=== PATIENT | female | born 1945 | race American Indian/Alaskan Native ===

== ENCOUNTER 2022-02-28 09:29 | Inpatient (IN) | payer MEDICARE ==
[2022-02-28] MEDS ORDERED: LORazepam 2 MG/ML VIAL ONE (09:31)
[2022-02-28] MEDS ORDERED: levETIRAcetam 1000 MG/NS 0.75% 1,000 MG/100 ML BAG IV ONE (09:41)
--- NOTE | 2022-02-28 09:46 | Emergency Department Report ---
ED Seizure HPI - General Stated Complaint: UNRESPONSIVE Time Seen by Provider: 02/28/22 09:37 - History of Present Illness Initial Comments: 76-year-old female with a history of seizure brought in by family member with generalized body shakiness and left facial twitching that started this morning. According to the patient daughter who came with her this is the first time she is witnessing this grand mal seizure. Patient has right carotid enterectomy done about a month ago and had a CVA before the procedure was done. According to the daughter patient has 100% on right side and 90% on the left side. She was started on Keppra for seizure since then. Pt daughter mentioned that her condition has deteriorated since she was started on the new medicine Keppra. No fall or trauma to the brain reported. No other modifying or associated factors reported. MD Complaint: seizure - Related Data Home Medications Medication Instructions Recorded Confirmed Last Taken carvediloL [Coreg] 12.5 mg PO BID 02/28/22 02/28/22 02/28/22 06:30 dilTIAZem CD [Cardizem Cd] 240 mg PO QDAY 02/28/22 02/28/22 02/28/22 Previous Rx's Medication Instructions Recorded Last Taken Type AtorvaSTATin [Lipitor] 80 mg PO QHS #60 tablet 12/29/21 02/28/22 Rx 0600 Levothyroxine [Synthroid] 100 mcg PO QAM #30 tablet 12/29/21 02/28/22 Rx 0600 Losartan [Cozaar] 100 mg PO QDAY #30 12/29/21 02/28/22 Rx 0600 levETIRAcetam [Keppra TAB] 250 mg PO BID #60 tablet 12/29/21 02/28/22 06:00 Rx Clopidogrel [Plavix] 75 mg PO QDAY #90 tablet 01/05/22 Unknown Rx Docusate Sodium [Colace CAP] 100 mg PO BID #30 capsule 01/07/22 Unknown Rx hydrALAZINE [Apresoline TAB] 50 mg PO Q8HR #90 tablet 01/07/22 02/28/22 06:00 Rx Allergies Allergy/AdvReac Type Severity Reaction Status Date / Time No Known Allergies Allergy Unverified 12/27/21 12:05 ED Review of Systems ROS: Stated complaint: UNRESPONSIVE Other details as noted in HPI Comment: All other systems reviewed and negative Neurological: other (Seizure) ED Past Medical Hx - Past Medical History Hx Hypertension: Yes Hx Heart Attack/AMI: No (+Cardiac clearance; negative NST) Hx Sickle Cell Disease: No - Social History Smoking Status: Former Smoker - Medications Home Medications: Home Medications Medication Instructions Recorded Confirmed Last Taken Type AtorvaSTATin [Lipitor] 80 mg PO QHS #60 tablet 12/29/21 02/28/22 02/28/22 Rx 0600 Levothyroxine [Synthroid] 100 mcg PO QAM #30 tablet 12/29/21 02/28/22 02/28/22 Rx 0600 Losartan [Cozaar] 100 mg PO QDAY #30 12/29/21 02/28/22 02/28/22 Rx 0600 levETIRAcetam [Keppra TAB] 250 mg PO BID #60 tablet 12/29/21 02/28/22 02/28/22 06:00 Rx Clopidogrel [Plavix] 75 mg PO QDAY #90 tablet 01/05/22 Unknown Rx Docusate Sodium [Colace CAP] 100 mg PO BID #30 capsule 01/07/22 Unknown Rx hydrALAZINE [Apresoline TAB] 50 mg PO Q8HR #90 tablet 01/07/22 02/28/22 02/28/22 06:00 Rx carvediloL [Coreg] 12.5 mg PO BID 02/28/22 02/28/22 02/28/22 06:30 History dilTIAZem CD [Cardizem Cd] 240 mg PO QDAY 02/28/22 02/28/22 02/28/22 History ED Physical Exam - General Limitations: Altered Mental Status, Other (Active seizing) General appearance: postictal (Then with seizure in the emergency room) - ENT ENT exam: Present: normal exam, normal orophraynx, mucous membranes dry - Neck Neck exam: Present: other (Right surgical scar probably from the CEA) - Respiratory Respiratory exam: Present: normal lung sounds bilaterally. Absent: respiratory distress, accessory muscle use - Cardiovascular Cardiovascular Exam: Present: regular rate, normal rhythm, normal heart sounds - GI/Abdominal GI/Abdominal exam: Present: soft, normal bowel sounds. Absent: tenderness - Extremities Exam Extremities exam: Present: normal inspection. Absent: tenderness, pedal edema - Neurological Exam Neurological exam: Present: other (active seizure ) ED Course Vital Signs 02/28/22 02/28/22 02/28/22 09:30 09:45 10:00 Temperature 97.8 F Pulse Rate 88 Respiratory 18 Rate Blood Pressure 210/130 O2 Sat by Pulse 99 Oximetry 02/28/22 02/28/22 02/28/22 10:09 10:16 10:30 Temperature Pulse Rate 70 67 62 Respiratory 18 22 16 Rate Blood Pressure 171/93 197/89 O2 Sat by Pulse 97 100 100 Oximetry 02/28/22 02/28/22 02/28/22 10:46 11:00 11:12 Temperature Pulse Rate 67 62 100 H Respiratory 20 21 Rate Blood Pressure 197/89 253/162 200/100 O2 Sat by Pulse 96 97 97 Oximetry 02/28/22 02/28/22 02/28/22 11:16 11:30 11:46 Temperature Pulse Rate 63 66 60 Respiratory 29 H 31 H 23 Rate Blood Pressure 219/104 216/96 200/112 O2 Sat by Pulse 97 98 100 Oximetry 02/28/22 02/28/22 02/28/22 12:00 12:16 12:30 Temperature Pulse Rate 66 69 63 Respiratory 26 H 25 H 25 H Rate Blood Pressure 206/110 206/102 208/98 O2 Sat by Pulse 100 100 100 Oximetry 02/28/22 02/28/22 02/28/22 12:46 13:00 13:16 Temperature Pulse Rate 67 68 65 Respiratory 29 H 29 H 31 H Rate Blood Pressure 198/100 200/94 205/108 O2 Sat by Pulse 100 100 97 Oximetry 02/28/22 02/28/22 13:30 13:46 Temperature Pulse Rate 68 69 Respiratory 31 H 33 H Rate Blood Pressure 190/90 130/73 O2 Sat by Pulse 100 95 Oximetry ED Medical Decision Making - Lab Data Result diagrams: 02/28/22 Unknown 02/28/22 Unknown - EKG Data EKG shows normal: sinus rhythm Rate: normal - EKG Data 02/28/22 12:05 Noted with normal sinus rhythm at a rate of 73 bpm with multiple premature complexes with no ST elevation or depression in this abnormal ECG. - Radiology Data CT head noted with no intracranial abnormality or bleed - Medical Decision Making Here with possible seizure -- but considering this patients age and recent right carotid endarterectomy other differential such as stroke, myocardial infarction, hepatic encephalopathy, systemic infection with sepsis cannot be ruled out. In order to rule out those above we will go ahead and order CT scan of the brain, CBC, CMP, urinalysis, for any infectious process or electrolyte abnormality and thyroid panel for any hypo or hyper thyroidism. In the meantime we will go ahead and give immediate Ativan 2 mg IV x1 and Keppra 1 g IV piggyback x1. Also noted with hypertensive crisis-- Labetalol 20 mg given -- Critical care attestation.: If time is entered above; I have spent that time in minutes in the direct care of this critically ill patient, excluding procedure time. ED Disposition Clinical Impression: Seizure, Postictal confusion, Hypertensive crisis AMS (altered mental status) Qualifiers: Altered mental status type: unspecified Qualified Code(s): R41.82 - Altered mental status, unspecified Disposition: 09 ADMITTED INPATIENT Is pt being admited?: Yes Does the pt Need Aspirin: No Condition: Stable Instructions: Hypertension (ED) Time of Disposition: 14:52
--- NOTE | 2022-02-28 10:17 | Cat Scan Report ---
NONENHANCED CT SCAN OF THE HEAD: INDICATION / CLINICAL INFORMATION: 76 years Female; CODE STROKE, LNW [id number], Found unresponsive, [id number] . TECHNIQUE: Routine CT head without contrast. All CT scans at this location are performed using CT dos e reduction for ALARA by means of automated exposure control. COMPARISON: CT scan of the head from 01/06/2022 and MRI scan from 12/28/2021 FINDINGS: BRAIN / INTRACRANIAL CONTENTS: No intracerebral hemorrhage or stroke mimics No change in the left occipital craniotomy and residual calcified extra-axial mass; chronic changes i n the lateral convexity of the posterior right frontal lobe; unchanged; periventricular low-attenuati on areas due to chronic small vessel disease; unchanged CRANIOCERVICAL JUNCTION: No significant abnormality. ORBITS: No significant abnormality of visualized orbits. SINUSES / MASTOIDS: No significant abnormality of the visualized paranasal sinuses or mastoid air raisa ls. ADDITIONAL FINDINGS: None. IMPRESSION: No intracerebral hemorrhage or stroke mimics No acute/subacute territorial infarction Chronic ischemic changes in the lateral convexity of right posterior frontal lobe; unchanged Signer Name: Ben Bryant MD Signed: 02/28/2022 10:12 AM Workstation Name: [id number]
[2022-02-28 10:42] LABS: Basophils % (Auto) 0.4 % (0.0-1.8); Eosinophils % (Auto) 0.7 % (0.0-4.3); Hematocrit 36.2 % (30.3-42.9); Hemoglobin 11.7 gm/dl (10.1-14.3); Lymphocytes # (Auto) 2.4 K/mm3 (1.2-5.4); Lymphocytes % (Auto) 36.1 % (13.4-35.0); Mean Corpuscular HGB Conc 32 % (30-34); Mean Corpuscular Volume 88 fl (79-97); Monocytes # (Auto) 0.3 K/mm3 (0.0-0.8); Monocytes % (Auto) 4.2 % (0.0-7.3); Red Cell Distribution Width 15.9 % (13.2-15.2)
[2022-02-28 10:49] LABS: INR 0.92 (0.87-1.13)
[2022-02-28 11:01] LABS: Alanine Aminotransferase 11 units/L (7-56); Albumin 3.9 g/dL (3.9-5); BUN/Creatinine Ratio 14; Blood Urea Nitrogen 11 mg/dL (7-17); Calcium 9.3 mg/dL (8.4-10.2); Hemolysis Index 29
[2022-02-28 11:53] LABS: Platelet Count 158 K/mm3 (140-440)
[2022-02-28] MEDS ORDERED: hydrALAZINE 20 MG/1 ML INJ IV ONE (13:00)
[2022-02-28] MEDS ORDERED: hydrALAZINE 20 MG/1 ML INJ ONE (13:19)
[2022-02-28] MEDS ORDERED: ACETAMINOPHEN 325 MG TAB PO PRN ×2 (14:52→18:29)
[2022-02-28] MEDS ORDERED: ONDANSETRON 4 MG/2 ML INJ IV PRN ×2 (14:52→18:29)
[2022-02-28] MEDS ORDERED: MORPHINE 2 MG/1 ML INJ IV PRN (14:52)
--- NOTE | 2022-02-28 18:27 | History and Physical Report ---
History of Present Illness Date of examination: 02/28/22 Date of admission: 02/28/22 14:52 Chief complaint: Recurrent seizures History of present illness: 76-year-old -[place] female with history of hypertension, seizure disorder, coronary artery disease and hypothyroidism and hyperlipidemia brought in by daughter for generalized seizures since a.m. Also left facial twitching. Patient recently had bilateral carotid endarterectomy. Had a cerebrovascular accident for the endarterectomy procedure. Patient had blockage of 100% on the right side and 90% on the left side. Patient is on Keppra for a long time. Compliant with medications. No fever or chills. - Past Medical History --Hypertension: Yes --Heart Attack/AMI: No (+Cardiac clearance; negative NST) --Hypothyroidism Surgical history -- bilateral carotid endarterectomy--recently - Social History --Smoking Status: Former Smoker -Family history --Htn - Medications --Home Medications: Home Medications Medication Instructions Recorded Confirmed Last Taken Type AtorvaSTATin [Lipitor] 80 mg PO QHS #60 tablet 12/29/21 02/28/22 02/28/22 Rx 0600 Levothyroxine [Synthroid] 100 mcg PO QAM #30 tablet 12/29/21 02/28/22 02/28/22 Rx 0600 Losartan [Cozaar] 100 mg PO QDAY #30 12/29/21 02/28/22 02/28/22 Rx 0600 levETIRAcetam [Keppra TAB] 250 mg PO BID #60 tablet 12/29/21 02/28/22 02/28/22 06:00 Rx Clopidogrel [Plavix] 75 mg PO QDAY #90 tablet 01/05/22 Unknown Rx Docusate Sodium [Colace CAP] 100 mg PO BID #30 capsule 01/07/22 Unknown Rx hydrALAZINE [Apresoline TAB] 50 mg PO Q8HR #90 tablet 01/07/22 02/28/22 02/28/22 06:00 Rx carvediloL [Coreg] 12.5 mg PO BID 02/28/22 02/28/22 02/28/22 06:30 History dilTIAZem CD [Cardizem Cd] 240 mg PO QDAY 02/28/22 02/28/22 02/28/22 History Review of Systems ROS: Constitutional no weight loss or weight gain no fever or chills HEENT no sore throat no post nasal drip no diplopia Neck no neck stiffness no lymph gland enlargement Chest and lungs no shortness of breath cough or wheezing CVS no chest pain no diaphoresis no palpitations GI no nausea no vomiting no diarrhea Genitourinary system no dysuria no flank pain Musculoskeletal system no muscle pains no joint pains [employer] recurrent seizures and postictal Skin no rash no itching Psychiatric no depression no homicidal or suicidal tendencies Hematologic no lymphedema or bruising Endocrine no polydipsia no polyuria no cold intolerance no heat intolerance Medications and Allergies Allergies Allergy/AdvReac Type Severity Reaction Status Date / Time No Known Allergies Allergy Unverified 12/27/21 12:05 Home Medications Medication Instructions Recorded Confirmed Last Taken Type AtorvaSTATin [Lipitor] 80 mg PO QHS #60 tablet 12/29/21 02/28/22 02/28/22 Rx 0600 Levothyroxine [Synthroid] 100 mcg PO QAM #30 tablet 12/29/21 02/28/22 02/28/22 Rx 0600 Losartan [Cozaar] 100 mg PO QDAY #30 12/29/21 02/28/22 02/28/22 Rx 0600 levETIRAcetam [Keppra TAB] 250 mg PO BID #60 tablet 12/29/21 02/28/22 02/28/22 06:00 Rx Clopidogrel [Plavix] 75 mg PO QDAY #90 tablet 01/05/22 Unknown Rx Docusate Sodium [Colace CAP] 100 mg PO BID #30 capsule 01/07/22 Unknown Rx hydrALAZINE [Apresoline TAB] 50 mg PO Q8HR #90 tablet 01/07/22 02/28/22 02/28/22 06:00 Rx carvediloL [Coreg] 12.5 mg PO BID 02/28/22 02/28/22 02/28/22 06:30 History dilTIAZem CD [Cardizem Cd] 240 mg PO QDAY 02/28/22 02/28/22 02/28/22 History Active Meds: Active Medications Acetaminophen (Acetaminophen 325 Mg Tab) 650 mg PO Q4H PRN PRN Reason: Pain MILD(1-3)/Fever >100.5/COE Morphine Sulfate (Morphine 2 Mg/1 Ml Inj) 2 mg IV Q4H PRN PRN Reason: Pain, Moderate (4-6) Ondansetron HCl (Ondansetron 4 Mg/2 Ml Inj) 4 mg IV Q8H PRN PRN Reason: Nausea And Vomiting Sodium Chloride (Sodium Chloride 0.9% 10 Ml Flush Syringe) 10 ml IV BID VONNIE Last Admin: 02/28/22 17:03 Dose: 10 ml Sodium Chloride (Sodium Chloride 0.9% 10 Ml Flush Syringe) 10 ml IV PRN PRN PRN Reason: LINE FLUSH Exam - Constitutional Vitals: Temp Pulse Resp BP Pulse Ox 97.8 F 66 26 H 96/60 100 02/28/22 09:30 02/28/22 17:30 02/28/22 17:30 02/28/22 17:30 02/28/22 17:30 General appearance: Present: mild distress, well-nourished - EENT Eyes: Present: PERRL ENT: hearing intact, clear oral mucosa - Neck Neck: Present: supple, normal ROM - Respiratory Respiratory effort: normal Respiratory: bilateral: CTA, rhonchi - Cardiovascular Heart rate: 98 Rhythm: regular Heart Sounds: Present: S1 & S2. Absent: rub, click - Extremities Extremities: pulses symmetrical, No edema Peripheral Pulses: within normal limits - Abdominal General gastrointestinal: Present: soft, non-tender, non-distended, normal bowel sounds Female genitourinary: Present: normal - Integumentary Integumentary: Present: clear, warm, dry - Musculoskeletal Musculoskeletal: generalized weakness - Psychiatric Psychiatric: agitated, other (Altered sensorium) - Neurologic Neurologic: CNII-XII intact, moves all extremities - Allied Health Allied health notes reviewed: nursing, case management HEART Score - HEART Score Troponin: Troponin T < 0.010 ng/mL (0.00-0.029) 02/28/22 Unknown Results - Labs CBC & Chem 7: 03/01/22 04:13 03/01/22 04:13 Labs: Laboratory Last Values WBC 6.6 K/mm3 (4.5-11.0) 02/28/22 Unknown RBC 4.10 M/mm3 (3.65-5.03) 02/28/22 Unknown Hgb 11.7 gm/dl (10.1-14.3) 02/28/22 Unknown Hct 36.2 % (30.3-42.9) 02/28/22 Unknown MCV 88 fl (79-97) 02/28/22 Unknown MCH 29 pg (28-32) 02/28/22 Unknown MCHC 32 % (30-34) 02/28/22 Unknown RDW 15.9 % (13.2-15.2) H 02/28/22 Unknown Plt Count 158 K/mm3 (140-440) 02/28/22 Unknown Lymph % (Auto) 36.1 % (13.4-35.0) H 02/28/22 Unknown Winkler % (Auto) 4.2 % (0.0-7.3) 02/28/22 Unknown Eos % (Auto) 0.7 % (0.0-4.3) 02/28/22 Unknown Baso % (Auto) 0.4 % (0.0-1.8) 02/28/22 Unknown Lymph # (Auto) 2.4 K/mm3 (1.2-5.4) 02/28/22 Unknown [place]inkler # (Auto) 0.3 K/mm3 (0.0-0.8) 02/28/22 Unknown Eos # (Auto) 0.0 K/mm3 (0.0-0.4) 02/28/22 Unknown Baso # (Auto) 0.0 K/mm3 (0.0-0.1) 02/28/22 Unknown Seg Neutrophils % 58.6 % (40.0-70.0) 02/28/22 Unknown Seg Neutrophils # 3.9 K/mm3 (1.8-7.7) 02/28/22 Unknown PT 13.6 Sec. (12.2-14.9) 02/28/22 Unknown INR 0.92 (0.87-1.13) 02/28/22 Unknown APTT 24.0 Sec. (24.2-36.6) L 02/28/22 Unknown Sodium 138 mmol/L (137-145) 02/28/22 Unknown Potassium 3.8 mmol/L (3.6-5.0) 02/28/22 Unknown Chloride 100.6 mmol/L (98-107) 02/28/22 Unknown Carbon Dioxide 26 mmol/L (22-30) 02/28/22 Unknown Anion Gap 15 mmol/L 02/28/22 Unknown BUN 11 mg/dL (7-17) 02/28/22 Unknown Creatinine 0.8 mg/dL (0.6-1.2) 02/28/22 Unknown Estimated GFR > 60 ml/min 02/28/22 Unknown BUN/Creatinine Ratio 14 % 02/28/22 Unknown Glucose 142 mg/dL (65-100) H 02/28/22 Unknown Calcium 9.3 mg/dL (8.4-10.2) 02/28/22 Unknown Total Bilirubin 0.40 mg/dL (0.1-1.2) 02/28/22 Unknown AST 19 units/L (5-40) 02/28/22 Unknown ALT 11 units/L (7-56) 02/28/22 Unknown Alkaline Phosphatase 70 units/L (35-129) 02/28/22 Unknown Troponin T < 0.010 ng/mL (0.00-0.029) 02/28/22 Unknown NT-Pro-B Natriuret Pep 581.7 pg/mL (0-900) 02/28/22 Unknown Total Protein 7.8 g/dL (6.3-8.2) 02/28/22 Unknown Albumin 3.9 g/dL (3.9-5) 02/28/22 Unknown Albumin/Globulin Ratio 1.0 % 02/28/22 Unknown Short CBC 02/28/22 03/01/22 Range/Units Unknown 04:13 WBC 6.6 9.7 (4.5-11.0) K/mm3 Hgb 11.7 11.4 (10.1-14.3) gm/dl Hct 36.2 35.7 (30.3-42.9) % Plt Count 158 197 (140-440) K/mm3 BMP 02/28/22 03/01/22 Unknown 04:13 Sodium 138 134 L Potassium 3.8 3.3 L Chloride 100.6 97.0 L Carbon Dioxide 26 24 BUN 11 10 Creatinine 0.8 0.6 Glucose 142 H 116 H Calcium 9.3 9.2 Cardiac Enzymes 02/28/22 Range/Units Unknown Troponin T < 0.010 (0.00-0.029) ng/mL Liver Function 02/28/22 03/01/22 Range/Units Unknown 04:13 Total Bilirubin 0.40 0.40 (0.1-1.2) mg/dL AST 19 22 (5-40) units/L ALT 11 11 (7-56) units/L Alkaline Phosphatase 70 71 (35-129) units/L Albumin 3.9 3.6 L (3.9-5) g/dL Assessment and Plan Assessment and plan: Critical care statement The high probability OF a clinically significant sudden or life-threatening deterioration of the cardiorespiratory system and endocrine system required my full and direct attention, intervention and postoperative management. The aggregate critical care time was 40 minutes. The time is in addition to time spent performing reported procedures but includes the followin: Data review and interpretation 2: Patient assessment and monitoring of vital signs 3: Documentation 4:: Medication orders and management Advance Directives: Yes (Full code) VTE prophylaxis?: Chemical Plan of care discussed with patient/family: Yes - Patient Problems (1) Acute encephalopathy Current Visit: Yes Status: Acute Plan to address problem: Secondary to seizures Patient is postictal IV fluids IV Keppra (2) Status epilepticus Current Visit: Yes Status: Acute Plan to address problem: Recurrent seizures in the last 8 to 12 hours Intubation if necessary for protection of airway IV Keppra initiated (3) Hypertensive emergency Current Visit: Yes Status: Acute Plan to address problem: Patient initiated Coreg, losartan and hydralazine. IV hydralazine 10 mg every 3 hours as needed as required. Cardene drip if necessary. (4) Hypothyroidism Current Visit: Yes Status: Chronic Qualifiers: Hypothyroidism type: acquired Qualified Code(s): E03.9 - Hypothyroidism, unspecified Plan to address problem: Continue Synthroid. Check TSH. (5) COPD (chronic obstructive pulmonary disease) Current Visit: Yes Status: Chronic Qualifiers: COPD type: unspecified COPD Qualified Code(s): J44.9 - Chronic obstructive pulmonary disease, unspecified Plan to address problem: DuoNebs as needed (6) CVA (cerebral vascular accident) Current Visit: Yes Status: Chronic Qualifiers: CVA mechanism: unspecified Qualified Code(s): I63.9 - Cerebral infarction, unspecified Plan to address problem: Left-sided mild residual weakness PT and OT when stable (7) DVT prophylaxis Current Visit: Yes Status: Acute Plan to address problem: On anticoagulation GI prophylaxis (8) Advance care planning Current Visit: Yes Status: Acute Plan to address problem: Patient and daughter were given disease education, care plan discussed, diagnosis discussed, prognosis discussed. Patient is full code. Daughter a cknowledges understanding and agreement with care plan. +30 minutes.
[2022-02-28] MEDS ORDERED: ZOLPIDEM 5 MG TAB PO PRN (18:29)
[2022-02-28] MEDS ORDERED: HYDROmorphone 0.5 MG/0.5 ML INJ IV PRN (18:29)
[2022-02-28] MEDS ORDERED: METOCLOPRAMIDE 10 MG/2 ML INJ IV PRN (18:29)
[2022-02-28] MEDS ORDERED: oxyCODONE /ACETAMINOPHEN 5-325MG TAB PO PRN (18:29)
[2022-02-28] MEDS ORDERED: SODIUM CHLORIDE 0.9% 1000 ML 1,000 ML IV SCH (18:45)
[2022-02-28] MEDS ORDERED: levETIRAcetam 500 MG TAB PO SCH (22:00)
[2022-02-28] MEDS: LORazepam 2 MG/ML VIAL IV PRN (22:07)
[2022-02-28] MEDS: levETIRAcetam 750 MG in DEXTROSE 5% IN WATER 100 ML IV SCH (22:14)
[2022-02-28] MEDS: FAMOTIDINE 20 MG/2 ML INJ IV SCH (22:26)
[2022-02-28] MEDS: carvediloL 12.5 MG TAB PO SCH (23:09)
[2022-02-28] MEDS: hydrALAZINE 25 MG TAB PO SCH (23:10)
[2022-02-28] MEDS: DOCUSATE SODIUM 100 MG CAP PO SCH (23:10)
--- NOTE | 2022-02-28 23:19 | XRay Report ---
ABDOMEN 1 VIEW 02/27/2022 INDICATION / CLINICAL INFORMATION: ng tube placement. COMPARISON: None available. FINDINGS: TUBES / LINES: Weighted enteric tube terminates within the stomach. BOWEL GAS PATTERN: No significant abnormality. FREE AIR / EXTRALUMINAL GAS: None seen. ADDITIONAL FINDINGS: No significant additional findings. IMPRESSION: 1. Weighted enteric tube terminates within the stomach. Signer Name: Sung Arriola DO Signed: 02/28/2022 11:15 PM Workstation Name: [id number]
[2022-03-01] MEDS: LORazepam 2 MG/ML VIAL IV PRN ×2 (00:58→08:00)
[2022-03-01] MEDS: hydrALAZINE 20 MG/1 ML INJ IV PRN ×2 (01:35→16:04)
[2022-03-01 04:59] LABS: Basophils % (Auto) 0.2 % (0.0-1.8); Hematocrit 35.7 % (30.3-42.9); Hemoglobin 11.4 gm/dl (10.1-14.3); Lymphocytes # (Auto) 1.8 K/mm3 (1.2-5.4); Lymphocytes % (Auto) 18.5 % (13.4-35.0); Mean Corpuscular HGB Conc 32 % (30-34); Mean Corpuscular Volume 87 fl (79-97); Monocytes # (Auto) 0.8 K/mm3 (0.0-0.8); Monocytes % (Auto) 7.9 % (0.0-7.3); Platelet Count 197 K/mm3 (140-440); Red Blood Count 4.08 M/mm3 (3.65-5.03); Red Cell Distribution Width 15.7 % (13.2-15.2)
[2022-03-01] MEDS: hydrALAZINE 25 MG TAB PO SCH (05:00)
[2022-03-01 05:24] LABS: Alanine Aminotransferase 11 units/L (7-56); Albumin 3.6 g/dL (3.9-5); Blood Urea Nitrogen 10 mg/dL (7-17); Calcium 9.2 mg/dL (8.4-10.2); Hemolysis Index 10
[2022-03-01 05:36] LABS: BUN/Creatinine Ratio 17
[2022-03-01] MEDS ORDERED: LEVOTHYROXINE 100 MCG TAB PO SCH (06:00)
[2022-03-01] MEDS ORDERED: IPRATROPIUM/ALBUTEROL SULFATE 3 ML AMPUL.NEB IH PRN (07:10)
[2022-03-01] MEDS ORDERED: ALBUTEROL 2.5 MG/3 ML NEBU IH PRN (08:00)
[2022-03-01] MEDS: IPRATROPIUM/ALBUTEROL SULFATE 3 ML AMPUL.NEB IH SCH ×4 (08:33→20:10)
[2022-03-01] MEDS: DOCUSATE SODIUM 100 MG CAP PO SCH (09:03)
[2022-03-01] MEDS: carvediloL 12.5 MG TAB PO SCH (09:07)
[2022-03-01] MEDS: FAMOTIDINE 20 MG/2 ML INJ IV SCH ×2 (09:07→23:33)
[2022-03-01] MEDS: levETIRAcetam 750 MG in DEXTROSE 5% IN WATER 100 ML IV SCH (09:08)
[2022-03-01] MEDS ORDERED: LOSARTAN 50 MG TAB PO SCH (10:00)
[2022-03-01] MEDS ORDERED: NON-FORMULARY EACH (Losartan [Cozaar] 100 MG) PO SCH (10:00)
[2022-03-01] MEDS ORDERED: CLOPIDOGREL 75 MG TAB PO SCH (10:00)
[2022-03-01] MEDS ORDERED: propofoL 200 MG/20 ML VIAL IV ONE (12:02)
--- NOTE | 2022-03-01 12:10 | Electrocardiograph Report ---
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
--- NOTE | 2022-03-01 12:40 | Consultation ---
History of Present Illness Consult date: 03/01/22 Requesting physician: CELIA BLACK Medications and Allergies Allergies Allergy/AdvReac Type Severity Reaction Status Date / Time No Known Allergies Allergy Unverified 12/27/21 12:05 Home Medications Medication Instructions Recorded Confirmed Last Taken Type AtorvaSTATin [Lipitor] 80 mg PO QHS #60 tablet 12/29/21 02/28/22 02/28/22 Rx 0600 Levothyroxine [Synthroid] 100 mcg PO QAM #30 tablet 12/29/21 02/28/22 02/28/22 Rx 0600 Losartan [Cozaar] 100 mg PO QDAY #30 12/29/21 02/28/22 02/28/22 Rx 0600 levETIRAcetam [Keppra TAB] 250 mg PO BID #60 tablet 12/29/21 02/28/22 02/28/22 06:00 Rx Clopidogrel [Plavix] 75 mg PO QDAY #90 tablet 01/05/22 Unknown Rx Docusate Sodium [Colace CAP] 100 mg PO BID #30 capsule 01/07/22 Unknown Rx hydrALAZINE [Apresoline TAB] 50 mg PO Q8HR #90 tablet 01/07/22 02/28/22 02/28/22 06:00 Rx carvediloL [Coreg] 12.5 mg PO BID 02/28/22 02/28/22 02/28/22 06:30 History dilTIAZem CD [Cardizem Cd] 240 mg PO QDAY 02/28/22 02/28/22 02/28/22 History Active Meds: Active Medications Acetaminophen (Acetaminophen 325 Mg Tab) 650 mg PO Q4H PRN PRN Reason: Pain MILD(1-3)/Fever >100.5/COE Albuterol (Albuterol 2.5 Mg/3 Ml Nebu) 2.5 mg IH Q4HRT PRN PRN Reason: Wheezing Albuterol/Ipratropium (Ipratropium/Albuterol Sulfate 3 Ml Ampul.Neb) 1 ampul IH QIDRT VONNIE Last Admin: 03/01/22 08:33 Dose: 1 ampul Atorvastatin Calcium (Atorvastatin 40 Mg Tab) 80 mg FEEDTUBE QHS VONNIE Carvedilol (Carvedilol 12.5 Mg Tab) 12.5 mg FEEDTUBE BID VONNIE Clopidogrel Bisulfate (Clopidogrel 75 Mg Tab) 75 mg FEEDTUBE QDAY VONNIE Docusate Sodium (Docusate Sodium 100 Mg/10 Ml Oral Liqd) 100 mg PO BID VONNIE Famotidine (Famotidine 20 Mg/2 Ml Inj) 20 mg IV BID VONNIE Last Admin: 03/01/22 09:07 Dose: 20 mg Hydralazine HCl (Hydralazine 20 Mg/1 Ml Inj) 10 mg IV Q6H PRN PRN Reason: SBP>160 Last Admin: 03/01/22 01:35 Dose: 10 mg Hydralazine HCl (Hydralazine 25 Mg Tab) 50 mg FEEDTUBE Q8HR VONNIE Hydromorphone HCl (Hydromorphone 0.5 Mg/0.5 Ml Inj) 0.5 mg IV Q3H PRN PRN Reason: Pain , Severe (7-10) Hydrophilic Ointment (Lip Therapy Vaseline) 1 applic TP Q2HR PRN PRN Reason: Dry Lips Sodium Chloride (Nacl 0.9% 1000 Ml) 1,000 mls @ 42 mls/hr IV DIRECT VONNIE Last Admin: 02/28/22 22:14 Dose: 42 mls/hr Propofol (Diprivan 10 Mg/Ml) 1,000 mg in 100 mls @ 2.178 mls/hr IV TITR VONNIE; Protocol Levetiracetam 1,000 mg/ (Dextrose) 110 mls @ 400 mls/hr IV Q12HR VONNIE Levothyroxine Sodium (Levothyroxine 100 Mcg Tab) 100 mcg FEEDTUBE 0600 [facility] Lorazepam (Lorazepam 2 Mg/Ml Vial) 1 mg IV Q3H PRN PRN Reason: Seizures Last Admin: 03/01/22 08:00 Dose: 1 mg Losartan Potassium (Losartan 50 Mg Tab) 100 mg FEEDTUBE QDAY [facility] Melatonin (Melatonin 5 Mg Tab) 5 mg PO QHS PRN PRN Reason: Sleep Metoclopramide HCl (Metoclopramide 10 Mg/2 Ml Inj) 10 mg IV Q6H PRN PRN Reason: Nausea And Vomiting Morphine Sulfate (Morphine 2 Mg/1 Ml Inj) 2 mg IV Q4H PRN PRN Reason: Pain, Moderate (4-6) Multi-Ingred Cream/Lotion/Oil/Oint (Mineral Oil/Petrolatum, White Ophth Oint 3.5 Gm) 1 applic OU Q4HR PRN PRN Reason: Dry Eye(s) Ondansetron HCl (Ondansetron 4 Mg/2 Ml Inj) 4 mg IV Q8H PRN PRN Reason: Nausea And Vomiting Oxycodone/Acetaminophen (Oxycodone /Acetaminophen 5-325mg Tab) 1 tab FEEDTUBE Q6H PRN PRN Reason: Pain, Moderate (4-6) Senna/Docusate Sodium (Sennosides/Docusate Sodium 8.6/50 Mg Tab) 1 tab FEEDTUBE BID VONNIE Sodium Chloride (Sodium Chloride 0.9% 10 Ml Flush Syringe) 10 ml IV BID VONNIE Last Admin: 03/01/22 09:08 Dose: 10 ml Sodium Chloride (Sodium Chloride 0.9% 10 Ml Flush Syringe) 10 ml IV PRN PRN PRN Reason: LINE FLUSH Physical Examination Vital signs: Vital Signs Temp 97.8 F 02/28/22 09:30 Results - Laboratory Findings CBC and BMP: 03/01/22 04:13 03/01/22 04:13 PT/INR, D-dimer PT 13.6 Sec. (12.2-14.9) 02/28/22 Unknown INR 0.92 (0.87-1.13) 02/28/22 Unknown Abnormal lab findings: Abnormal Labs 02/28/22 02/28/22 02/28/22 18:50 Unknown Unknown RDW 15.9 H Lymph % (Auto) 36.1 H Divide % (Auto) Seg Neutrophils % APTT Sodium Potassium Chloride Glucose 142 H POC Glucose 130 H Albumin 02/28/22 03/01/22 03/01/22 Unknown 04:13 04:13 RDW 15.7 H Lymph % (Auto) Divide % (Auto) 7.9 H Seg Neutrophils % 73.4 H APTT 24.0 L Sodium 134 L Potassium 3.3 L Chloride 97.0 L Glucose 116 H POC Glucose Albumin 3.6 L Assessment and Plan 76 y/o female who appears to be in status epilepticus
--- NOTE | 2022-03-01 12:43 | Progress Note ---
Subjective Date of service: 03/01/22 Principal diagnosis: Status Epilepticus Interval history: Intubation in ICU 12:05-12:18 Called in to ICU by Dr. Salazar and for intubation to the patient in status epilepticus for airway protection. VSS SpO2 98% on room air, BP 148/77 mmHg, HR 82. Patient pre oxygenated, induced with Propofol 130mg, Succynilcholine 120mg. Direct laryngoscopy with MAC 3 blade, intubation with 7.0mm ETT. ETT position confirmed with auscultation and color change on CO2 sensor. No complication. Transfer of care to RT. Objective - Constitutional Vitals: Vital Signs - 12hr 03/01/22 03/01/22 03/01/22 00:30 01:00 01:30 Temperature Pulse Rate 77 78 80 Pulse Rate [ Bilateral Throughout] Respiratory 32 H 21 33 H Rate Respiratory Rate [Bilateral Throughout] Blood Pressure 217/85 197/80 199/117 O2 Sat by Pulse 100 98 94 Oximetry 03/01/22 03/01/22 03/01/22 02:00 02:15 02:30 Temperature Pulse Rate 74 73 Pulse Rate [ Bilateral Throughout] Respiratory 31 H 25 H Rate Respiratory Rate [Bilateral Throughout] Blood Pressure 199/117 168/76 149/73 O2 Sat by Pulse 99 99 Oximetry 03/01/22 03/01/22 03/01/22 03:00 03:08 03:23 Temperature Pulse Rate 73 76 Pulse Rate [ Bilateral Throughout] Respiratory 23 16 Rate Respiratory Rate [Bilateral Throughout] Blood Pressure 136/75 O2 Sat by Pulse 99 100 Oximetry 03/01/22 03/01/22 03/01/22 03:30 04:00 04:30 Temperature Pulse Rate 69 69 71 Pulse Rate [ Bilateral Throughout] Respiratory 23 23 25 H Rate Respiratory Rate [Bilateral Throughout] Blood Pressure 165/75 168/75 176/78 O2 Sat by Pulse 99 98 95 Oximetry 03/01/22 03/01/22 03/01/22 05:00 05:23 06:00 Temperature 98.4 F Pulse Rate 72 71 Pulse Rate [ Bilateral Throughout] Respiratory 21 28 H Rate Respiratory Rate [Bilateral Throughout] Blood Pressure 176/78 139/68 O2 Sat by Pulse 98 98 Oximetry 03/01/22 03/01/22 03/01/22 07:00 07:15 07:22 Temperature 99.1 F Pulse Rate 76 75 Pulse Rate [ Bilateral Throughout] Respiratory 26 H Rate Respiratory Rate [Bilateral Throughout] Blood Pressure 138/62 O2 Sat by Pulse 98 Oximetry 03/01/22 03/01/22 03/01/22 08:00 08:33 08:39 Temperature Pulse Rate 77 Pulse Rate [ 76 Bilateral Throughout] Respiratory 25 H Rate Respiratory 22 Rate [Bilateral Throughout] Blood Pressure 106/37 O2 Sat by Pulse 100 98 Oximetry 03/01/22 03/01/22 03/01/22 09:00 09:07 10:00 Temperature Pulse Rate 72 76 78 Pulse Rate [ Bilateral Throughout] Respiratory 29 H 29 H Rate Respiratory Rate [Bilateral Throughout] Blood Pressure 103/78 136/70 157/122 O2 Sat by Pulse 96 97 Oximetry 03/01/22 03/01/22 03/01/22 11:00 11:26 12:05 Temperature 99.0 F Pulse Rate 66 65 Pulse Rate [ Bilateral Throughout] Respiratory 27 H Rate Respiratory Rate [Bilateral Throughout] Blood Pressure 159/116 O2 Sat by Pulse 96 Oximetry - Labs CBC & Chem 7: 03/01/22 04:13 03/01/22 04:13 Labs: Abnormal lab results 02/28/22 03/01/22 03/01/22 Range/Units 18:50 04:13 04:13 RDW 15.7 H (13.2-15.2) % [place] % (Auto) 7.9 H (0.0-7.3) % Seg Neutrophils % 73.4 H (40.0-70.0) % Sodium 134 L (137-145) mmol/L Potassium 3.3 L (3.6-5.0) mmol/L Chloride 97.0 L (98-107) mmol/L Glucose 116 H (65-100) mg/dL POC Glucose 130 H (70-105) mg/dL Albumin 3.6 L (3.9-5) g/dL
--- NOTE | 2022-03-01 12:43 | XRay Report ---
CHEST 1 VIEW 03/01/2022 12:27 PM INDICATION / CLINICAL INFORMATION: ETT placement. COMPARISON: None available. FINDINGS: SUPPORT DEVICES: ET tube is satisfactory in position approximately 2.8 cm above the tyler HEART / MEDIASTINUM: No significant abnormality. LUNGS / PLEURA: Mild increased interstitial prominence without focal consolidation No pneumothorax. Signer Name: Kai Fischer MD Signed: 03/01/2022 12:39 PM Workstation Name: [id number]
[2022-03-01] MEDS ORDERED: MINERAL OIL/PETROLATUM, WHITE OPHTH OINT 3.5 GM OU PRN (13:00)
[2022-03-01] MEDS ORDERED: CLOPIDOGREL 75 MG TAB FEEDTUBE SCH (13:00)
[2022-03-01] MEDS ORDERED: oxyCODONE /ACETAMINOPHEN 5-325MG TAB FEEDTUBE PRN (13:00)
[2022-03-01] MEDS ORDERED: LIP THERAPY VASELINE TP PRN (13:00)
[2022-03-01 14:07] LABS: ABG Base Excess 0.3 mmol/L (-2.0-3.0); ABG HCO3 23.2 mmol/L (20.0-26.0); ABG Methemoglobin 0.5 % (0.0-1.5); ABG Oxygen Saturation 98.8 % (95.0-99.0); ABG PCO2 31.5 mm Hg; ABG PH 7.485 pH Units (7.350-7.450); ABG PO2 139.1 mm Hg (80.0-90.0)
--- NOTE | 2022-03-01 14:44 | Progress Note ---
Assessment and Plan Assessment and plan: History of present illness: 76-year-old -[place] female with history of hypertension, seizure disorder, coronary artery disease and hypothyroidism and hyperlipidemia brought in by daughter for generalized seizures since a.m. Also left facial twitching. Patient recently had bilateral carotid endarterectomy. Had a cerebrovascular accident for the endarterectomy procedure. Patient had blockage of 100% on the right side and 90% on the left side. Patient is on Keppra for a long time. Compliant with medications. No fever or chills. Hospital course: 03/01: Continues to be altered on my encounter. Appears to be in status epilepticus. nystagmus and generalized twitching noted on encounter. Intubated for airway protection by anesthesiology. Daughter updated on patient status as well as obtained consent for airway and central line access if needed. Stat EEG ordered ,awaiting official read. Neurology consultation is placed however I mckinney spect this is beyond the scope of our tele neurology team, we will likely need tertiary. Currently on propofol infusion. Call placed to [facility] for transfer for neuro ICU. Spoke with neurointensivist Dr Edward. recommended initiation of Dilantin and a Keppra load if seizures not controlled. Also recommended CTA head and neck which has been completed and is negative for LVO. Accepted at [facility] for [facility]. Assessment and Plan (1) Acute encephalopathy Current Visit: Yes Status: Acute Plan to address problem: Secondary to seizures Patient is postictal IV fluids IV Keppra (2) Status epilepticus Current Visit: Yes Status: Acute Plan to address problem: Recurrent seizures in the last 8 to 12 hours Intubation if necessary for protection of airway IV Keppra initiated (3) Hypertensive emergency Current Visit: Yes Status: Acute Plan to address problem: Patient initiated Coreg, losartan and hydralazine. IV hydralazine 10 mg every 3 hours as needed as required. Cardene drip if necessary. (4) Hypothyroidism Current Visit: Yes Status: Chronic Qualifiers: Hypothyroidism type: acquired Qualified Code(s): E03.9 - Hypothyroidism, unspecified Plan to address problem: Continue Synthroid. Check TSH. (5) COPD (chronic obstructive pulmonary disease) Current Visit: Yes Status: Chronic Qualifiers: COPD type: unspecified COPD Qualified Code(s): J44.9 - Chronic obstructive pulmonary disease, unspecified Plan to address problem: DuoNebs as needed (6) CVA (cerebral vascular accident) Current Visit: Yes Status: Chronic Qualifiers: CVA mechanism: unspecified Qualified Code(s): I63.9 - Cerebral infarction, unspecified Plan to address problem: Left-sided mild residual weakness PT and OT when stable (7) DVT prophylaxis Current Visit: Yes Status: Acute Plan to address problem: On anticoagulation GI prophylaxis (8) Advance care planning Current Visit: Yes Status: Acute Plan to address problem: Patient and daughter were given disease education, care plan discussed, diagnosis discussed, prognosis discussed. Patient is full code. Daughter acknowledges understanding and agreement with care plan. +30 minutes. The high probability of a clinically significant, sudden or life threatening deterioration of the [neuro] system(s) required my full and direct attention, intervention and personal management. The aggregate critical care time was [90] minutes. This time is in addition to time spent performing reported procedures but includes the following: [x] Data Review and interpretation [x] Patient assessment and monitoring of vital signs [x] Documentation [x] Medication orders and management History Interval history: obtunded, nonresponsive to physical or tactile stimuli. subsequently intubated. Hospitalist Physical - Physical exam Narrative exam: Gen: nad, well-nourished, intubated; Head: normocephalic; Eyes: no gaze deviation; no ptosis appreciated; ENT: +ETT; CVS: warm and well-perfused; Pulm: no respiratory distress; GI: appears non-distended; Ext: no cyanosis appreciated at distal extremities; Skin: no acute rash or hives appreciated at distal extremities; Heme: no pathologic ecchymosis appreciated at distal extremities; Neuro: comatose, intubated, CN 2 - sluggish reactive pupils, CN 3, 4, 6 - ocu locephalic intact, CN 5/7 - corneal reflex intact, CN 9/10 - swallowing noted, CN 11/12 - pt cannot cooperate secondary to LOC; Motor/Sensory - at least 1/5 at all exts to tactile stimuli; Cerebellar/Gait - pt cannot cooperate secondary to LOC; - Constitutional Vitals: Temp Pulse Resp BP Pulse Ox 99.0 F 73 19 168/93 100 03/01/22 12:05 03/01/22 13:00 03/01/22 13:00 03/01/22 13:00 03/01/22 13:00 General appearance: Present: mild distress, well-nourished HEART Score - HEART Score Troponin: Troponin T < 0.010 ng/mL (0.00-0.029) 02/28/22 Unknown Results - Labs CBC & Chem 7: 03/01/22 04:13 03/01/22 04:13 Labs: Laboratory Last Values WBC 9.7 K/mm3 (4.5-11.0) 03/01/22 04:13 RBC 4.08 M/mm3 (3.65-5.03) 03/01/22 04:13 Hgb 11.4 gm/dl (10.1-14.3) 03/01/22 04:13 Hct 35.7 % (30.3-42.9) 03/01/22 04:13 MCV 87 fl (79-97) 03/01/22 04:13 MCH 28 pg (28-32) 03/01/22 04:13 MCHC 32 % (30-34) 03/01/22 04:13 RDW 15.7 % (13.2-15.2) H 03/01/22 04:13 Plt Count 197 K/mm3 (140-440) 03/01/22 04:13 Lymph % (Auto) 18.5 % (13.4-35.0) 03/01/22 04:13 [place] % (Auto) 7.9 % (0.0-7.3) H 03/01/22 04:13 Eos % (Auto) 0.0 % (0.0-4.3) 03/01/22 04:13 Baso % (Auto) 0.2 % (0.0-1.8) 03/01/22 04:13 Lymph # (Auto) 1.8 K/mm3 (1.2-5.4) 03/01/22 04:13 [place] # (Auto) 0.8 K/mm3 (0.0-0.8) 03/01/22 04:13 Eos # (Auto) 0.0 K/mm3 (0.0-0.4) 03/01/22 04:13 Baso # (Auto) 0.0 K/mm3 (0.0-0.1) 03/01/22 04:13 Seg Neutrophils % 73.4 % (40.0-70.0) H 03/01/22 04:13 Seg Neutrophils # 7.1 K/mm3 (1.8-7.7) 03/01/22 04:13 PT 13.6 Sec. (12.2-14.9) 02/28/22 Unknown INR 0.92 (0.87-1.13) 02/28/22 Unknown APTT 24.0 Sec. (24.2-36.6) L 02/28/22 Unknown ABG pH 7.485 pH Units (7.350-7.450) H 03/01/22 13:50 ABG pCO2 31.5 mm Hg 03/01/22 13:50 ABG pO2 139.1 mm Hg (80.0-90.0) H 03/01/22 13:50 ABG HCO3 23.2 mmol/L (20.0-26.0) 03/01/22 13:50 ABG O2 Saturation 98.8 % (95.0-99.0) 03/01/22 13:50 ABG O2 Content 15.6 (0.0-44) 03/01/22 13:50 ABG Base Excess 0.3 mmol/L (-2.0-3.0) 03/01/22 13:50 ABG Hemoglobin 11.2 gm/dl (12.0-16.0) L 03/01/22 13:50 ABG Carboxyhemoglobin 1.0 % (0.0-5.0) 03/01/22 13:50 ABG Methemoglobin 0.5 % (0.0-1.5) 03/01/22 13:50 Oxyhemoglobin 97.3 % (95.0-99.0) 03/01/22 13:50 FiO2 40 % 03/01/22 13:50 Sodium 134 mmol/L (137-145) L 03/01/22 04:13 Potassium 3.3 mmol/L (3.6-5.0) L 03/01/22 04:13 Chloride 97.0 mmol/L (98-107) L 03/01/22 04:13 Carbon Dioxide 24 mmol/L (22-30) 03/01/22 04:13 Anion Gap 16 mmol/L 03/01/22 04:13 BUN 10 mg/dL (7-17) 03/01/22 04:13 Creatinine 0.6 mg/dL (0.6-1.2) 03/01/22 04:13 Estimated GFR > 60 ml/min 03/01/22 04:13 BUN/Creatinine Ratio 17 % 03/01/22 04:13 Glucose 116 mg/dL (65-100) H 03/01/22 04:13 POC Glucose 130 mg/dL (70-105) H 02/28/22 18:50 Calcium 9.2 mg/dL (8.4-10.2) 03/01/22 04:13 Phosphorus 3.00 mg/dL (2.5-4.5) 03/01/22 04:13 Magnesium 1.70 mg/dL (1.7-2.3) 03/01/22 04:13 Total Bilirubin 0.40 mg/dL (0.1-1.2) 03/01/22 04:13 AST 22 units/L (5-40) 03/01/22 04:13 ALT 11 units/L (7-56) 03/01/22 04:13 Alkaline Phosphatase 71 units/L (35-129) 03/01/22 04:13 Troponin T < 0.010 ng/mL (0.00-0.029) 02/28/22 Unknown NT-Pro-B Natriuret Pep 581.7 pg/mL (0-900) 02/28/22 Unknown Total Protein 7.7 g/dL (6.3-8.2) 03/01/22 04:13 Albumin 3.6 g/dL (3.9-5) L 03/01/22 04:13 Albumin/Globulin Ratio 0.9 % 03/01/22 04:13 [place]/IV: Voiding Method External Female Catheter Active Medications - Current Medications Current Medications: Generic Name Dose Route Start Last Admin Trade Name Freq PRN Reason Stop Dose Admin Acetaminophen 650 mg 02/28/22 18:29 Acetaminophen 325 Mg Tab PO Q4H PRN Pain MILD(1-3)/Fever >100.5/COE Albuterol 2.5 mg 03/01/22 08:00 Albuterol 2.5 Mg/3 Ml Nebu IH Q4HRT PRN Wheezing Albuterol/Ipratropium 1 ampul 03/01/22 08:00 03/01/22 14:37 Ipratropium/Albuterol Sulfate 3 Ml Ampul.Neb IH Not Given QIDRT VONNIE Atorvastatin Calcium 80 mg 03/01/22 22:00 Atorvastatin 40 Mg Tab FEEDTUBE QHS VONNIE Carvedilol 12.5 mg 03/01/22 22:00 Carvedilol 12.5 Mg Tab FEEDTUBE BID VONNIE Clopidogrel Bisulfate 75 mg 03/02/22 10:00 Clopidogrel 75 Mg Tab FEEDTUBE QDAY VONNIE Docusate Sodium 100 mg 03/01/22 22:00 Docusate Sodium 100 Mg/10 Ml Oral Liqd PO BID VONNIE Famotidine 20 mg 02/28/22 22:00 03/01/22 09:07 Famotidine 20 Mg/2 Ml Inj IV 20 mg BID VONNIE Administration Hydralazine HCl 10 mg 03/01/22 01:25 03/01/22 01:35 Hydralazine 20 Mg/1 Ml Inj IV 10 mg Q6H PRN Administration SBP>160 Hydralazine HCl 50 mg 03/01/22 14:00 Hydralazine 25 Mg Tab FEEDTUBE Q8HR VONNIE Hydromorphone HCl 0.5 mg 02/28/22 18:29 Hydromorphone 0.5 Mg/0.5 Ml Inj IV Q3H PRN Pain , Severe (7-10) Hydrophilic Ointment 1 applic 03/01/22 13:00 Lip Therapy Vaseline TP Q2H PRN Dry Lips Sodium Chloride 1,000 mls @ 42 mls/hr 02/28/22 18:45 02/28/22 22:14 Nacl 0.9% 1000 Ml IV 42 mls/hr DIRECT VONNIE Administration Propofol 1,000 mg in 100 mls @ 2.178 mls/hr 03/01/22 13:00 Diprivan 10 Mg/Ml IV TITR VONNIE Protocol 5 MCG/KG/MIN Levetiracetam 1,000 mg/ 110 mls @ 400 mls/hr 03/01/22 22:00 Dextrose IV Q12HR VONNIE Levothyroxine Sodium 100 mcg 03/02/22 06:00 Levothyroxine 100 Mcg Tab FEEDTUBE 0600 VONNIE Lorazepam 1 mg 02/28/22 21:48 03/01/22 08:00 Lorazepam 2 Mg/Ml Vial IV 1 mg Q3H PRN Administration Seizures Losartan Potassium 100 mg 03/02/22 10:00 Losartan 50 Mg Tab FEEDTUBE QDAY VONNIE Melatonin 5 mg 03/01/22 22:00 Melatonin 5 Mg Tab PO QHS PRN Sleep Metoclopramide HCl 10 mg 02/28/22 18:29 Metoclopramide 10 Mg/2 Ml Inj IV Q6H PRN Nausea And Vomiting Morphine Sulfate 2 mg 02/28/22 14:52 Morphine 2 Mg/1 Ml Inj IV Q4H PRN Pain, Moderate (4-6) Multi-Ingred Cream/Lotion/Oil/Oint 1 applic 03/01/22 13:00 Mineral Oil/Petrolatum, White Ophth Oint 3.5 Gm OU Q4H PRN Dry Eye(s) Ondansetron HCl 4 mg 02/28/22 18:29 Ondansetron 4 Mg/2 Ml Inj IV Q8H PRN Nausea And Vomiting Oxycodone/Acetaminophen 1 tab 03/01/22 13:00 Oxycodone /Acetaminophen 5-325mg Tab FEEDTUBE Q6H PRN Pain, Moderate (4-6) Senna/Docusate Sodium 1 tab 03/01/22 22:00 Sennosides/Docusate Sodium 8.6/50 Mg Tab FEEDTUBE BID VONNIE Sodium Chloride 10 ml 02/28/22 22:00 03/01/22 09:08 Sodium Chloride 0.9% 10 Ml Flush Syringe IV 10 ml BID VONNIE Administration Sodium Chloride 10 ml 02/28/22 18:29 Sodium Chloride 0.9% 10 Ml Flush Syringe IV PRN PRN LINE FLUSH
--- NOTE | 2022-03-01 15:30 | Consultation ---
History of Present Illness Consult date: 03/01/22 Reason for Consult: Seizure Chief complaint: Seizure History of present illness: 76 yo female with seizure d/o, hypertension, cva, s/p CEA ~1 month ago, who presented with (per HPI) "...generalized body shakiness and left facial twitching that started this morning. According to the patient daughter who came with her this is the first time she is witnessing this grand mal seizure. Patient has right carotid enterectomy done about a month ago and had a CVA before the procedure was done. According to the daughter patient has 100% on right side and 90% on the left side. She was started on Keppra for seizure since then. Pt daughter mentioned that her condition has deteriorated since she was started on the new medicine Keppra. No fall or trauma to the brain reported. No other modifying or associated factors reported." Per RN, at the bedside, the patient's condition deteriorated and she was intubated emergently today. She was noted with questionable seizure-like activity, however, per RN, the EEG did not reveal status epilepticus. No clinical seizure activiy otherwise noted, per RN. No further clinical history can be obtained from the patient at this time. Past History Past Medical History: hypertension, seizures Past Surgical History: No surgical history Social history: no significant social history Family history: no significant family history Medications and Allergies Allergies Allergy/AdvReac Type Severity Reaction Status Date / Time No Known Allergies Allergy Unverified 12/27/21 12:05 Home Medications Medication Instructions Recorded Confirmed Last Taken Type AtorvaSTATin [Lipitor] 80 mg PO QHS #60 tablet 12/29/21 02/28/22 02/28/22 Rx 0600 Levothyroxine [Synthroid] 100 mcg PO QAM #30 tablet 12/29/21 02/28/22 02/28/22 Rx 0600 Losartan [Cozaar] 100 mg PO QDAY #30 12/29/21 02/28/22 02/28/22 Rx 0600 levETIRAcetam [Keppra TAB] 250 mg PO BID #60 tablet 12/29/21 02/28/22 02/28/22 06:00 Rx Clopidogrel [Plavix] 75 mg PO QDAY #90 tablet 01/05/22 Unknown Rx Docusate Sodium [Colace CAP] 100 mg PO BID #30 capsule 01/07/22 Unknown Rx hydrALAZINE [Apresoline TAB] 50 mg PO Q8HR #90 tablet 01/07/22 02/28/22 02/28/22 06:00 Rx carvediloL [Coreg] 12.5 mg PO BID 02/28/22 02/28/22 02/28/22 06:30 History dilTIAZem CD [Cardizem Cd] 240 mg PO QDAY 02/28/22 02/28/22 02/28/22 History Active Meds: Active Medications Acetaminophen (Acetaminophen 325 Mg Tab) 650 mg PO Q4H PRN PRN Reason: Pain MILD(1-3)/Fever >100.5/COE Albuterol (Albuterol 2.5 Mg/3 Ml Nebu) 2.5 mg IH Q4HRT PRN PRN Reason: Wheezing Albuterol/Ipratropium (Ipratropium/Albuterol Sulfate 3 Ml Ampul.Neb) 1 ampul IH Q6HRT VONNIE Atorvastatin Calcium (Atorvastatin 40 Mg Tab) 80 mg FEEDTUBE QHS [facility] Carvedilol (Carvedilol 12.5 Mg Tab) 12.5 mg FEEDTUBE BID [facility] Clopidogrel Bisulfate (Clopidogrel 75 Mg Tab) 75 mg FEEDTUBE QDAY [facility] Docusate Sodium (Docusate Sodium 100 Mg/10 Ml Oral Liqd) 100 mg PO BID [facility] Famotidine (Famotidine 20 Mg/2 Ml Inj) 20 mg IV BID [facility] Last Admin: 03/01/22 09:07 Dose: 20 mg Hydralazine HCl (Hydralazine 20 Mg/1 Ml Inj) 10 mg IV Q6H PRN PRN Reason: SBP>160 Last Admin: 03/01/22 01:35 Dose: 10 mg Hydralazine HCl (Hydralazine 25 Mg Tab) 50 mg FEEDTUBE Q8HR [facility] Hydromorphone HCl (Hydromorphone 0.5 Mg/0.5 Ml Inj) 0.5 mg IV Q3H PRN PRN Reason: Pain , Severe (7-10) Hydrophilic Ointment (Lip Therapy Vaseline) 1 applic TP Q2H PRN PRN Reason: Dry Lips Sodium Chloride (Nacl 0.9% 1000 Ml) 1,000 mls @ 42 mls/hr IV DIRECT [facility] Last Admin: 02/28/22 22:14 Dose: 42 mls/hr Propofol (Diprivan 10 Mg/Ml) 1,000 mg in 100 mls @ 2.178 mls/hr IV TITR VONNIE; Protocol Levetiracetam 1,000 mg/ (Dextrose) 110 mls @ 400 mls/hr IV Q12HR VONNIE Fosphenytoin Sodium 1,000 mg. (pe/ Sodium Chloride) 120 mls @ 200 mls/hr IV ONCE ONE Stop: 03/01/22 15:54 Levothyroxine Sodium (Levothyroxine 100 Mcg Tab) 100 mcg FEEDTUBE 0600 VONNIE Lorazepam (Lorazepam 2 Mg/Ml Vial) 1 mg IV Q3H PRN PRN Reason: Seizures Last Admin: 03/01/22 08:00 Dose: 1 mg Losartan Potassium (Losartan 50 Mg Tab) 100 mg FEEDTUBE QDAY VONNIE Melatonin (Melatonin 5 Mg Tab) 5 mg PO QHS PRN PRN Reason: Sleep Metoclopramide HCl (Metoclopramide 10 Mg/2 Ml Inj) 10 mg IV Q6H PRN PRN Reason: Nausea And Vomiting Morphine Sulfate (Morphine 2 Mg/1 Ml Inj) 2 mg IV Q4H PRN PRN Reason: Pain, Moderate (4-6) Multi-Ingred Cream/Lotion/Oil/Oint (Mineral Oil/Petrolatum, White Ophth Oint 3.5 Gm) 1 applic OU Q4H PRN PRN Reason: Dry Eye(s) Ondansetron HCl (Ondansetron 4 Mg/2 Ml Inj) 4 mg IV Q8H PRN PRN Reason: Nausea And Vomiting Oxycodone/Acetaminophen (Oxycodone /Acetaminophen 5-325mg Tab) 1 tab FEEDTUBE Q6H PRN PRN Reason: Pain, Moderate (4-6) Senna/Docusate Sodium (Sennosides/Docusate Sodium 8.6/50 Mg Tab) 1 tab FEEDTUBE BID VONNIE Sodium Chloride (Sodium Chloride 0.9% 10 Ml Flush Syringe) 10 ml IV BID VONNIE Last Admin: 03/01/22 09:08 Dose: 10 ml Sodium Chloride (Sodium Chloride 0.9% 10 Ml Flush Syringe) 10 ml IV PRN PRN PRN Reason: LINE FLUSH Review of Systems ROS unobtainable: due to mental status Physical Examination - Vital Signs Vital Signs: Vital Signs Temp 97.8 F 02/28/22 09:30 - Physical Exam Narrative exam: Gen: nad, intubated; Head: normocephalic; Eyes: no gaze deviation; no ptosis appreciated; ENT: +ETT; CVS: warm and well-perfused; Pulm: no respiratory distress; GI: appears non-distended; Ext: no cyanosis appreciated at distal extremities; Skin: no acute rash appreciated at distal extremities; Heme: no pathologic ecchymosis appreciated at distal extremities; Neuro: obtunded, intubated, global aphasia; CN 2 - non-reactive pupils, CN 3, 4, 6 - no gaze deviation, CN 5/7 - corneal reflex intact, CN 9/10 - no gag elicited at present, CN 11/12 - pt cannot cooperate secondary to LOC; Motor/Sensory - at least 1/5 at rue with tremulousness / tremors intermittently associated w/ respiratory variation; 0/5 at all other extremities; Cerebellar/Gait - pt cannot cooperate secondary to LOC; NIHSS (1a.) Level of Consciousness:2 (1b.) LOC Questions:1 (1c.) LOC Commands:2 (2.) Best Gaze:0 (3.) Visual:2 (4.) Facial Palsy:0 (5a.) Motor Arm, Left:4 (5b.) Motor Arm, Right:3 (6a.) Motor Leg, Left:4 (6b.) Motor Leg, Right:4 (7.) Limb Ataxia:0 (8.) Sensory:2 (9.) Best Language:3 (10.) Dysarthria:un (11.) Extinction and Inattention:2 NIHSS Total Score: 29 Results - Laboratory Findings CBC and BMP: 03/01/22 04:13 03/01/22 04:13 Abnormal Lab Findings: Abnormal Labs 02/28/22 02/28/22 02/28/22 18:50 Unknown Unknown RDW 15.9 H Lymph % (Auto) 36.1 H [place] % (Auto) Seg Neutrophils % APTT ABG pH ABG pO2 ABG Hemoglobin Sodium Potassium Chloride Glucose 142 H POC Glucose 130 H Albumin 02/28/22 03/01/22 03/01/22 Unknown 04:13 04:13 RDW 15.7 H Lymph % (Auto) [place] % (Auto) 7.9 H Seg Neutrophils % 73.4 H APTT 24.0 L ABG pH ABG pO2 ABG Hemoglobin Sodium 134 L Potassium 3.3 L Chloride 97.0 L Glucose 116 H POC Glucose Albumin 3.6 L 03/01/22 13:50 RDW Lymph % (Auto) [place] % (Auto) Seg Neutrophils % APTT ABG pH 7.485 H ABG pO2 139.1 H ABG Hemoglobin 11.2 L Sodium Potassium Chloride Glucose POC Glucose Albumin Assessment and Plan 76 yo female with seizure d/o, hypertension, cva, s/p CEA ~1 month ago, who presents with acute encephalopathy with concern for status epilepticus +/- stroke. 1. Status Epilepticus - stat fosphenytoin 1 gram bolus; continue keppra 1 gram q12; LONG-TERM VIDEO EEG MONITORING; pt needs to be EMERGENTLY TRANSFERRED to a facility for continuous monitoring; consider VERSED gtt if no clinical contraindication; continue propofol for now if no contraindication; communicated with Dr. Castanon, who notes patient is to be transferred to [facility] for higher level of care. 2. Acute Ischemic Stroke - stat ct ordered secondary to acute change in consciousness today (rn notes mri is "backed up"); continue antiplatelet/statin therapy; if no evidence of ictal activity contributing to patient's loc then concern for underlying posterior circulation event is also raised (versus bilateral embolic / hypoperfusion events). 3. Acute Metabolic Encephalopathy - if above diagnoses are ruled out, and no evidence of metabolic disturbance (ammonia/b12/thiamine) then an infectious etiology may need to be considered including csf evaluation. 4. Hx of Completed Stroke s/p CEA - antiplatelet/statin therapy. 5. Hypertension - goal sbp 160-200 mmHg / dbp 80-100 mmHg. Severo Bruno MD Neurology [id number]
[2022-03-01] MEDS: hydrALAZINE 25 MG TAB FEEDTUBE SCH ×2 (15:40→23:32)
[2022-03-01] MEDS ORDERED: FOSPHENYTOIN 1,000 MG.PE in SODIUM CHLORIDE 0.9% 100 ML IV ONE (16:00)
[2022-03-01] MEDS ORDERED: LACTATED RINGERS 1,000 ML IV ONE ×3 (16:30→20:00)
[2022-03-01] MEDS ORDERED: niCARdipine 50 MG in SODIUM CHLORIDE 0.9% 250ML 230 ML IV SCH (17:00)
[2022-03-01] MEDS ORDERED: PHENYLEPHRINE 100 MG in SODIUM CHLORIDE 0.9% 90 ML IV SCH (17:00)
[2022-03-01] MEDS ORDERED: NORepinephrine/NS 8 MG-250 ML 8 MG/250 ML INFUS..BTL IV SCH (17:00)
--- NOTE | 2022-03-01 17:15 | Event Note ---
Date: 03/01/221627 notified by GUILHERME Clement of SBP in the 50s. Patient was getting ready to go for imaging when hypotension episode occurred. Patient also received fosphenytoin and p.o. hydralazine prior to hypotension and was on propofol at 20 mcg which stopped twitching. Propofol drip stopped with resumption of twitching to BLE and UE. Given to LR boluses, Levophed started on low-dose through PIV. Ordered Michael- Synephrine but will need to obtain from pharmacy. GUILHERME Lee for PICC team at bedside for placement of PICC line. Patient's blood pressure increasing into the 140s. Dr. Castanon and Dr. Salazar aware. Dr. Salazar would like to administer at least 4 boluses for hypotension as needed. RN instructed to resume propofol when SBP recovers and use Levophed for blood pressure support if needed while propofol is infusing. CCT : 30 min
[2022-03-01] MEDS ORDERED: VANCOMYCIN 1,000 MG in SODIUM CHLORIDE 0.9% 500 ML 500 ML IV ONE (19:02)
[2022-03-01] MEDS ORDERED: VANCOMYCIN 1,500 MG in SODIUM CHLORIDE 0.9% 500 ML 500 ML IV ONE (19:15)
--- NOTE | 2022-03-01 19:15 | Cat Scan Report ---
CT BRAIN: 03/01/2022 at 1837 hours INDICATION / CLINICAL INFORMATION: CVA. COMPARISON: CT brain 02/28/2022 at 0948 hours FINDINGS: BRAIN/INTRACRANIAL STRUCTURES: Unenhanced CT images of the brain were obtained and compared to the re cent previous exam from 02/28/2022. There is been no change. Again seen is prominent diffuse cerebral atrophy. Chronic right frontal ischemic encephalomalacia is noted. Again seen is evidence of the left suboccipital craniectomy. The partially calcified dural-based left posterior fossa mass is again noted, most consistent with meningioma. EXTRACRANIAL STRUCTURES: Unremarkable. IMPRESSION: No acute abnormality. Chronic ischemic and age-related changes. Postoperative changes with left posterior fossa meningioma, unchanged. All CT scans at this location are performed using dose reduction to ALARA by means of automated expos ure control. Signer Name: Johnny Scott MD Signed: 03/01/2022 7:10 PM Workstation Name: [id number]
--- NOTE | 2022-03-01 19:20 | Cat Scan Report ---
CTA NECK WITH CONTRAST 03/01/2022 INDICATION / CLINICAL INFORMATION: cva, lvo. COMPARISON: Neck CT angiogram 01/05/2022 TECHNIQUE: Routine CTA of the neck is performed. 3-D/MIP reformats were postprocessed. Percentage st enosis is determined by direct quantitative measurements of diseased internal carotid artery diameter compared with normal distal internal carotid artery reference segments or by criteria similar to LANDON CET where applicable. All CT scans at this location are performed using CT dose reduction for ALARA b y means of automated exposure control. CONTRAST: 100 ml of Omnipaque 350 FINDINGS: Carotid bifurcations: At the left bifurcation, the proximal internal carotid artery is occluded, unch anged when compared to the prior exam. On the right, postoperative changes of carotid endarterectomy are noted, with no evidence of stenosis or occlusion. Carotid arteries: No significant abnormality. Cervical vertebral arteries: No significant abnormality. Aortic arch: No significant abnormality. None. IMPRESSION: 1. Proximal left ICA occluded, unchanged. 2. Postoperative changes right bifurcation with no evidence of stenosis. Signer Name: Johnny Scott MD Signed: 03/01/2022 7:15 PM Workstation Name: [id number]
--- NOTE | 2022-03-01 19:23 | Cat Scan Report ---
CTA HEAD WITH CONTRAST 03/01/2022 HISTORY: cva, lvo. COMPARISON: None. TECHNIQUE: All CT scans at this location are performed using CT dose reduction for ALARA by means of automated exposure control.. 3-D/MIP reformats postprocessed. Percentage stenosis is determined by d irect quantitative measurements of diseased internal carotid artery diameter compared with normal dis ej internal carotid artery reference segments or by criteria similar to NASCET where applicable. CONTRAST: 100 ml of Omnipaque 350 FINDINGS: CTA HEAD: Intracranial vertebral arteries: No significant abnormality. Basilar artery: No significant abnormality. Posterior cerebral arteries: No significant abnormality. Intracranial internal carotid arteries: The left carotid artery is occluded proximally. No flow-relat ed contrast enhancement is present at the level of skull base or cavernous sinus.The right distal int ernal carotid artery is at this chronic vascular calcification associated with it, resulting in moder ately severe stenosis of the distal right ICA at the level of the anterior clinoid. Anterior cerebral arteries: No significant abnormality. Middle cerebral arteries: No significant abnormality. Dural venous sinuses:Not optimally opacified. No significant abnormality. Additional findings: Left posterior fossa postoperative changes and probable meningioma noted, as sherron cribed on separate head CT report. IMPRESSION: 1. Occluded left internal carotid artery, with igiugig of Snider collaterals. Prominent atherosclerotic stenosis of distal right internal carotid artery. Signer Name: Johnny Scott MD Signed: 03/01/2022 7:19 PM Workstation Name: [id number]
--- NOTE | 2022-03-01 19:32 | Discharge Summary ---
Providers - Providers Date of Admission: 02/28/22 14:52 Date of discharge: 03/01/22 Attending physician: CELIA BLACK MD 02/28/22 18:29 Consult to Physician [CONS] Routine Comment: Consulting Provider: GAGANDEEP RIVAS Physician Instructions: Reason For Exam: Seizure disorder 03/01/22 12:08 Consult to Dietitian/Nutrition [CONS] Routine Physician Instructions: Reason For Exam: Reason for Consult: Evaluate nutritional intake 03/01/22 12:12 Consult to Dietitian/Nutrition [CONS] Routine Physician Instructions: Reason For Exam: Reason for Consult: Write/Manage Tube Feeding PICC Line Insertion [Consult to PICC Line RN] [CONS] Stat Reason For Exam: needs central access, h/o enderectomy Type Line:: PICC Primary care physician: CHELSEY DEL ANGEL Hospitalization Reason for admission: seizure Condition: Stable Hospital course: History of present illness: 76-year-old -[place] female with history of hypertension, seizure disorder, coronary artery disease and hypothyroidism and hyperlipidemia brought in by daughter for generalized seizures since a.m. Also left facial twitching. Patient recently had bilateral carotid endarterectomy. Had a cerebrovascular accident for the endarterectomy procedure. Patient had blockage of 100% on the right side and 90% on the left side. Patient is on Keppra for a long time. Compliant with medications. No fever or chills. Hospital course: 03/01: Continues to be altered on my encounter. Appears to be in status epilepticus. nystagmus and generalized twitching noted on encounter. Intubated for airway protection by anesthesiology. Daughter updated on patient status as well as obtained consent for airway and central line access if needed. Stat EEG ordered ,awaiting official read. Neurology consultation is placed however I suspect this is beyond the scope of our tele neurology team, we will likely need tertiary. Currently on propofol infusion. Call placed to [facility] for transfer for neuro ICU. Spoke with neurointensivist Dr Edward. recommended initiation of Dilantin and a Keppra load if seizures not controlled. Also recommended CTA head and neck which has been completed and is negative for LVO. Accepted at [facility] for transfer. Assessment and Plan (1) Acute encephalopathy Current Visit: Yes Status: Acute Plan to address problem: Secondary to seizures Patient is postictal IV fluids IV Keppra (2) Status epilepticus Current Visit: Yes Status: Acute Plan to address problem: Recurrent seizures in the last 8 to 12 hours Intubation if necessary for protection of airway IV Keppra initiated (3) Hypertensive emergency Current Visit: Yes Status: Acute Plan to address problem: Patient initiated Coreg, losartan and hydralazine. IV hydralazine 10 mg every 3 hours as needed as required. Cardene drip if necessary. (4) Hypothyroidism Current Visit: Yes Status: Chronic Qualifiers: Hypothyroidism type: acquired Qualified Code(s): E03.9 - Hypothyroidism, unspecified Plan to address problem: Continue Synthroid. Check TSH. (5) COPD (chronic obstructive pulmonary disease) Current Visit: Yes Status: Chronic Qualifiers: COPD type: unspecified COPD Qualified Code(s): J44.9 - Chronic obstructive pulmonary disease, unspecified Plan to address problem: DuoNebs as needed (6) CVA (cerebral vascular accident) Current Visit: Yes Status: Chronic Qualifiers: CVA mechanism: unspecified Qualified Code(s): I63.9 - Cerebral infarction, unspecified Plan to address problem: Left-sided mild residual weakness PT and OT when stable (7) DVT prophylaxis Current Visit: Yes Status: Acute Plan to address problem: On anticoagulation GI prophylaxis (8) Advance care planning Current Visit: Yes Status: Acute Plan to address problem: Patient and daughter were given disease education, care plan discussed, diagnosis discussed, prognosis discussed. Patient is full code. Daughter acknowledges understanding and agreement with care plan. +30 minutes. The high probability of a clinically significant, sudden or life threatening deterioration of the [neuro] system(s) required my full and direct attention, intervention and personal management. The aggregate critical care time was [90] minutes. This time is in addition to time spent performing reported procedures but includes the following: [x] Data Review and interpretation [x] Patient assessment and monitoring of vital signs [x] Documentation [x] Medication orders and management Disposition: 02 SHORT TERM [facility]OSP[facility] Final Discharge Diagnosis (Prints w/discharge instructions): Status Epilepticus Core Measure Documentation - Palliative Care Palliative Care/ Comfort Measures: Not Applicable - Core Measures Any of the following diagnoses?: none Exam - Physical Exam Narrative exam: Gen: nad, well-nourished, intubated; Head: normocephalic; Eyes: no gaze deviation; no ptosis appreciated; ENT: +ETT; CVS: warm and well-perfused; Pulm: no respiratory distress; GI: appears non-distended; Ext: no cyanosis appreciated at distal extremities; Skin: no acute rash or hives appreciated at distal extremities; Heme: no pathologic ecchymosis appreciated at distal extremities; Neuro: comatose, intubated, CN 2 - sluggish reactive pupils, CN 3, 4, 6 - oculocephalic intact, CN 5/7 - corneal reflex intact, CN 9/10 - swallowing noted, CN 11/12 - pt cannot cooperate secondary to LOC; Motor/Sensory - at least 1/5 at all exts to tactile stimuli; Cerebellar/Gait - pt cannot cooperate secondary to LOC; - Constitutional Vitals: Temp Pulse Resp BP Pulse Ox 101.8 F H 79 20 159/66 100 03/01/22 18:21 03/01/22 18:01 03/01/22 18:01 03/01/22 18:01 03/01/22 18:01 Plan Follow up with: CHELSEY DEL ANGEL MD [Primary Care Provider] - 3-5 Days
[2022-03-01] MEDS ORDERED: SODIUM CHLORIDE 0.9% IV ONE ×2 (20:00)
[2022-03-01] MEDS ORDERED: VANCOMYCIN PHARMACY TO DOSE IV SCH (20:00)
[2022-03-01] MEDS ORDERED: AMPICILLIN/NS 2 GM/100 ML 2 GM/100 ML BAG IV SCH (20:00)
[2022-03-01] MEDS ORDERED: VANCOMYCIN IV ONE ×2 (20:00)
[2022-03-01] MEDS ORDERED: cefTRIAXone/NS 1 GM/50 ML 1 GM/50 ML BAG IV SCH (20:00)
[2022-03-01] MEDS ORDERED: levETIRAcetam 1,000 MG in DEXTROSE 5% IN WATER 100 ML IV SCH (22:00)
[2022-03-01] MEDS ORDERED: carvediloL 12.5 MG TAB FEEDTUBE SCH (22:00)
[2022-03-01] MEDS ORDERED: SENNOSIDES/DOCUSATE SODIUM 8.6/50 MG TAB FEEDTUBE SCH (22:00)
[2022-03-01] MEDS ORDERED: DOCUSATE SODIUM 100 MG/10 ML ORAL LIQD PO SCH (22:00)
[2022-03-01] MEDS ORDERED: MELATONIN 5 MG TAB PO PRN (22:00)
[2022-03-01 22:18] VITALS: BP 116/61
[2022-03-02] MEDS ORDERED: LEVOTHYROXINE 100 MCG TAB FEEDTUBE SCH (06:00)
[2022-03-02] MEDS ORDERED: LOSARTAN 50 MG TAB FEEDTUBE SCH (10:00)
[2022-03-02] MEDS ORDERED: CLOPIDOGREL 75 MG TAB FEEDTUBE SCH (10:00)
== END 2022-03-01 23:25 | disposition short-term general hospital (02) | DRG 101 ==
LOC: ED 09:29 → 4A 14:52 → IMCU 22:59 → CC1 03-01 12:03
PROVIDERS: ADMIT Internal Medicine; ATTEND Internal Medicine
DX: G40.901 Epilepsy, unspecified, not intractable, with status epilepticus (principal); I16.1 Hypertensive emergency; I69.354 Hemiplegia and hemiparesis following cerebral infarction affecting left non-dominant side; I10 Essential (primary) hypertension; I25.10 Atherosclerotic heart disease of native coronary artery without angina pectoris; E03.9 Hypothyroidism, unspecified; J44.9 Chronic obstructive pulmonary disease, unspecified; E78.5 Hyperlipidemia, unspecified; Z79.899 Other long term (current) drug therapy; Z82.49 Family history of ischemic heart disease and other diseases of the circulatory system; Z87.891 Personal history of nicotine dependence
CPT/HCPCS: 36415; 36600; 70450; 70496; 70498; 71045; 74018; 80053; 80177; 82803; 82962; 83735; 83880; 84100; 84484; 85025; 85610; 85730; 87040; 87070; 87205; 93005; 94002; 94003; 94640; 95819; G0378; J3490; J7060; J0290; J0360; J0696; J1953; J2060; J2704; J3370; J7030; J7040; J7120; Q2009; Q9967